=== PATIENT | female | born 1935 | race African-American/Black ===

== ENCOUNTER 2016-05-28 14:51 | Inpatient (IN) | payer MEDICARE, MEDICAID ==
[~2016-05-28] VITALS: Ht 167.6 cm; Wt 112.5 kg
[~2016-05-28 14:51] MED LIST: ALBU2SYR INH; ASPI-292 PO; CLON0.1T PO; COLC0.6T66 PO; DIAZ-56 PO; ESOM40SU PO; FAMO40TA35 PO; FLONAS INH; FOLI-43 PO; GABA300S PO; GUAI10SY3 PO; HYDR1TAB PO; ISOS30TA PO; LORA-250 PO; LORA10TA64 PO; LOSA100T11 PO; MED4 PO; METO50TA5 PO; METO5VIA PO; NITRO BID; PANT40TA4 PO; PROAIR; PROC10TA PO; SIMV20TA2 PO; TIOT18CA3 INH; VERA300C6 PO
[2016-05-28] MEDS ORDERED: SODIUM CHLORIDE 0.9% 1,000 ML IV ONE (15:58)
[2016-05-28 17:07] LABS: BASOPHILS % 0.6 % (0.0-2.0); DIFFERENTIAL COMMENT 0; EOSINOPHILS % 2.4 % (0.0-5.0); HEMATOCRIT. 35.1 % (36.0-48.0); HEMOGLOBIN. 11.1 g/dL (12.0-16.0); LYMPHOCYTES % 39.6 % (20.0-50.0); MEAN CORPUSCULAR HEMOGLOBIN 23.6 pg (28.0-32.0); MEAN CORPUSCULAR HGB CONC 31.5 g/dL (31.0-37.0); MEAN CORPUSCULAR VOLUME 74.9 fL (81.0-99.0); MONOCYTES % 8.2 % (2.0-8.0); NEUTROPHILS % 49.2 % (40.0-76.0); PLATELET 174 x1000/uL (130-400); RED BLOOD CELL COUNT 4.69 mill/uL (4.2-5.4); WHITE BLOOD COUNT 5.5 x1000/uL (4.5-11.0)
[2016-05-28 17:09] LABS: ALANINE AMINOTRANSFERASE 21 IU/L (13-61); ALBUMIN 3.3 g/dL (3.4-5.0); ANION GAP 11; CALCIUM 8.6 mg/dL (8.5-10.1); CARBON DIOXIDE 27 mEq/L (21-32); CHLORIDE 107 mEq/L (98-107); ETHANOL BLOOD < 10 mg/dL; INDEX HEMOLYSI 1 (1-3); INDEX ICTERIC 1 (1-4); INDEX LIPEMIC 1 (1-3); UREA NITROGEN BLOOD 20 mg/dL (7-21); eGFR 53 mL/min (>60)
[2016-05-28 17:12] LABS: TROPONIN I < 0.02 ng/mL (0.00-0.04)
[2016-05-28] MEDS ORDERED: MORPHINE SULFATE 4 MG/ML CPJ (NOT FOR IM USE) IV ONE ×2 (17:30→19:15)
[2016-05-28] MEDS ORDERED: ACETAMINOPHEN 325MG TABLET PO ONE (17:30)
[2016-05-28] MEDS ORDERED: METOCLOPRAMIDE HCL 10MG/2ML VIAL IV ONE (19:15)
[2016-05-28 21:00] VITALS: BP 141/74
[2016-05-28 22:00] VITALS: BP 141/74
[2016-05-29] VITALS: BP 142/75
[2016-05-29] MEDS ORDERED: ONDANSETRON HCL 4MG/2ML VIAL IV PRN (01:45)
[2016-05-29] MEDS: METOPROLOL TARTRATE 50MG TABLET PO SCH ×2 (02:35→13:45)
[2016-05-29] MEDS: HYDROMORPHONE HCL/PF 2MG/ML CPJ IV PRN ×3 (02:36→18:33)
[2016-05-29 04:00] VITALS: BP 145/75
[2016-05-29 07:32] LABS: BASOPHILS % 0.7 % (0.0-2.0); DIFFERENTIAL COMMENT 0; HEMATOCRIT. 35.3 % (36.0-48.0); HEMOGLOBIN. 11.4 g/dL (12.0-16.0); MEAN CORPUSCULAR HEMOGLOBIN 23.7 pg (28.0-32.0); MEAN CORPUSCULAR HGB CONC 32.2 g/dL (31.0-37.0); MEAN CORPUSCULAR VOLUME 73.7 fL (81.0-99.0); MEAN PLATELET VOLUME 8.9 fl (7.4-10.4); MONOCYTES % 7.8 % (2.0-8.0); NEUTROPHILS % 49.5 % (40.0-76.0); PLATELET 177 x1000/uL (130-400); RED BLOOD CELL COUNT 4.79 mill/uL (4.2-5.4); RED CELL DISTRIBUTION WIDTH 18.4 % (11.6-14.6); WHITE BLOOD COUNT 4.5 x1000/uL (4.5-11.0)
[2016-05-29 07:33] LABS: ANION GAP 9; CALCIUM 8.3 mg/dL (8.5-10.1); CARBON DIOXIDE 29 mEq/L (21-32); CHLORIDE 107 mEq/L (98-107); INDEX HEMOLYSI 1 (1-3); INDEX ICTERIC 1 (1-4); INDEX LIPEMIC 1 (1-3); UREA NITROGEN BLOOD 20 mg/dL (7-21); eGFR > 60 mL/min (>60)
[2016-05-29 07:53] VITALS: BP 129/71
[2016-05-29 08:00] LABS: GLUCOSE URINE NEGATIVE (NEGATIVE); KETONES URINE NEGATIVE (NEGATIVE); LEUKOCYTE ESTERASE URINE NEGATIVE (NEGATIVE); NITRITE URINE NEGATIVE (NEGATIVE); OCCULT BLOOD URINE NEGATIVE (NEGATIVE); PH URINE 5.5 (4.5-8.0); PROTEIN URINE NEGATIVE (NEGATIVE); SPECIFIC GRAVITY URINE 1.021 (1.005-1.030); UROBILINOGEN URINE 0.2 E.U./dL (0.2-1.0)
[2016-05-29 08:06] LABS: CLARITY URINE CLEAR (CLEAR); COLOR URINE YELLOW (YELLOW)
[2016-05-29 08:24] LABS: *AMPHETAMINES SCREEN URINE NEGATIVE (NEGATIVE); *BARBITURATES SCREEN URINE NEGATIVE (NEGATIVE); *BENZODIAZEPINES SCREEN URINE PRESUMTIVE POSITIVE (NEGATIVE); *COCAINE SCREEN URINE NEGATIVE (NEGATIVE); CANNABINOID URINE SCREEN NEGATIVE (NEGATIVE); ECSTASY MDMA SCREEN URINE NEGATIVE (NEGATIVE); METHADONE URINE SCREEN NEGATIVE (NEGATIVE); OPIATES URINE SCREEN PRESUMTIVE POSITIVE (NEGATIVE); PHENCYCLIDINE URINE SCREEN NEGATIVE (NEGATIVE)
[2016-05-29] MEDS ORDERED: MEDICATION NOT ON FORMULARY EA (Simvastatin (Zocor) 20 MG) PO SCH (09:00)
[2016-05-29] MEDS: CLONIDINE 0.1MG TABLET PO SCH (09:51)
[2016-05-29] MEDS: LOSARTAN POTASSIUM 100 MG TABLET PO SCH (09:51)
[2016-05-29] MEDS: COLCHICINE 0.6MG TABLET PO SCH (09:51)
[2016-05-29] MEDS: DIAZEPAM 5 MG TABLET PO SCH (09:51)
[2016-05-29] MEDS: FOLIC ACID 1MG TABLET PO SCH (09:51)
[2016-05-29] MEDS: ASPIRIN 81MG TABLET PO SCH (09:51)
[2016-05-29] MEDS: OMEPRAZOLE 20MG CAPSULE EXTENDED RELEASE PO SCH ×2 (09:51→18:33)
[2016-05-29] MEDS: GABAPENTIN 300MG CAPSULE PO SCH ×2 (09:53→18:33)
[2016-05-29 11:54] VITALS: BP 114/76
[2016-05-29] MEDS ORDERED: GEMF600T3 PO (12:23)
[2016-05-29] MEDS: ISOSORBIDE DINITRATE 30MG TABLET PO SCH ×2 (13:45→18:33)
[2016-05-29] MEDS: VERAPAMIL HCL 180MG ER TABLET PO SCH (13:45)
[2016-05-29 15:22] LABS: C REACTIVE PROTEIN QUANT 1.6 mg/L (0.0-3.0)
[2016-05-29 15:43] LABS: FERRITIN 18 ng/mL (10-291)
[2016-05-29 17:36] VITALS: BP 105/66
[2016-05-29] MEDS: FERROUS SULFATE 325MG TABLET PO SCH (18:33)
[2016-05-29 20:00] VITALS: BP 97/47
[2016-05-29 20:23] LABS: INDEX HEMOLYSI 1 (1-3)
[2016-05-29 20:39] LABS: VITAMIN B12 SERUM 383 pg/mL (211-911)
[2016-05-29 20:49] LABS: FOLIC ACID (FOLATE) SERUM > 20.00 ng/mL (>5.38)
[2016-05-30] VITALS: BP 113/69
[2016-05-30] MEDS: HYDROMORPHONE HCL/PF 2MG/ML CPJ IV PRN ×4 (00:06→17:18)
[2016-05-30] MEDS: METOPROLOL TARTRATE 50MG TABLET PO SCH ×2 (01:02→12:38)
[2016-05-30 04:00] VITALS: BP 138/69
[2016-05-30 08:07] VITALS: BP 108/61
[2016-05-30] MEDS: FOLIC ACID 1MG TABLET PO SCH (08:27)
[2016-05-30] MEDS: ASPIRIN 81MG TABLET PO SCH (08:27)
[2016-05-30] MEDS: FERROUS SULFATE 325MG TABLET PO SCH ×3 (08:28→17:15)
[2016-05-30] MEDS: OMEPRAZOLE 20MG CAPSULE EXTENDED RELEASE PO SCH ×2 (08:28→17:17)
[2016-05-30] MEDS: COLCHICINE 0.6MG TABLET PO SCH (08:28)
[2016-05-30] MEDS: ISOSORBIDE DINITRATE 30MG TABLET PO SCH ×2 (08:29→17:17)
[2016-05-30] MEDS: LOSARTAN POTASSIUM 100 MG TABLET PO SCH (08:29)
[2016-05-30] MEDS: GABAPENTIN 300MG CAPSULE PO SCH ×2 (08:35→17:17)
[2016-05-30] MEDS: VERAPAMIL HCL 180MG ER TABLET PO SCH (08:36)
[2016-05-30] MEDS: CLONIDINE 0.1MG TABLET PO SCH (08:37)
[2016-05-30] MEDS: DIAZEPAM 5 MG TABLET PO SCH (09:03)
[2016-05-30 11:54] VITALS: BP 105/69
[2016-05-30 12:51] LABS: T3 FREE 1.96 pg/ml (2.18-3.98); T4 FREE 1.06 ng/dL (0.76-1.46); THYROID STIMULATING HORMONE 2.9 mIU/mL (0.36-3.74)
[2016-05-30 16:32] VITALS: BP 114/65
[2016-05-30 20:00] VITALS: BP 97/42
[2016-05-31] VITALS: BP 97/49
[2016-05-31] MEDS: METOPROLOL TARTRATE 50MG TABLET PO SCH ×2 (01:41→13:31)
[2016-05-31 04:00] VITALS: BP 118/57
[2016-05-31] MEDS ORDERED: HYDROMORPHONE HCL/PF 2MG/ML CPJ IV PRN (07:30)
[2016-05-31 07:52] VITALS: BP 139/68
[2016-05-31] MEDS: OMEPRAZOLE 20MG CAPSULE EXTENDED RELEASE PO SCH ×2 (08:18→17:45)
[2016-05-31] MEDS: GABAPENTIN 300MG CAPSULE PO SCH ×2 (08:19→17:45)
[2016-05-31] MEDS: FOLIC ACID 1MG TABLET PO SCH (08:19)
[2016-05-31] MEDS: ASPIRIN 81MG TABLET PO SCH (08:19)
[2016-05-31] MEDS: FERROUS SULFATE 325MG TABLET PO SCH ×3 (08:19→17:45)
[2016-05-31] MEDS: COLCHICINE 0.6MG TABLET PO SCH (08:19)
[2016-05-31] MEDS: ISOSORBIDE DINITRATE 30MG TABLET PO SCH ×2 (08:20→17:44)
[2016-05-31] MEDS: DIAZEPAM 5 MG TABLET PO SCH (08:20)
[2016-05-31] MEDS: VERAPAMIL HCL 180MG ER TABLET PO SCH (08:21)
[2016-05-31] MEDS: LOSARTAN POTASSIUM 100 MG TABLET PO SCH (08:21)
[2016-05-31] MEDS: CLONIDINE 0.1MG TABLET PO SCH (08:21)
[2016-05-31] MEDS: DEXAMETHASONE 4MG/ML 1ML VIAL IV SCH ×2 (12:12→17:45)
[2016-05-31 13:22] VITALS: BP 135/66
[2016-05-31] MEDS: PHENYTOIN SODIUM 100MG/2ML VIAL IV SCH ×2 (13:31→22:33)
[2016-05-31] MEDS: GEMFIBROZIL 600 MG TAB PO SCH (17:44)
[2016-05-31 20:00] VITALS: BP 152/86
[2016-06-01] VITALS: BP 132/74
[2016-06-01] MEDS: DEXAMETHASONE 4MG/ML 1ML VIAL IV SCH ×4 (00:55→17:48)
[2016-06-01] MEDS: METOPROLOL TARTRATE 50MG TABLET PO SCH ×2 (00:56→12:42)
[2016-06-01 04:00] VITALS: BP 147/96
[2016-06-01] MEDS: PHENYTOIN SODIUM 100MG/2ML VIAL IV SCH (05:44)
[2016-06-01 06:39] LABS: BASOPHILS % 0.3 % (0.0-2.0); DIFFERENTIAL COMMENT 0; HEMATOCRIT. 36.6 % (36.0-48.0); HEMOGLOBIN. 11.8 g/dL (12.0-16.0); LYMPHOCYTES % 15.9 % (20.0-50.0); MEAN CORPUSCULAR HEMOGLOBIN 23.7 pg (28.0-32.0); MEAN CORPUSCULAR HGB CONC 32.2 g/dL (31.0-37.0); MEAN CORPUSCULAR VOLUME 73.6 fL (81.0-99.0); MEAN PLATELET VOLUME 8.9 fl (7.4-10.4); MONOCYTES % 3.1 % (2.0-8.0); NEUTROPHILS % 80.7 % (40.0-76.0); PLATELET 172 x1000/uL (130-400); RED BLOOD CELL COUNT 4.97 mill/uL (4.2-5.4); RED CELL DISTRIBUTION WIDTH 18.4 % (11.6-14.6); WHITE BLOOD COUNT 4.6 x1000/uL (4.5-11.0)
[2016-06-01 07:35] LABS: ANION GAP 13; CALCIUM 9.3 mg/dL (8.5-10.1); CARBON DIOXIDE 25 mEq/L (21-32); CHLORIDE 106 mEq/L (98-107); INDEX HEMOLYSI 1 (1-3); INDEX ICTERIC 1 (1-4); INDEX LIPEMIC 1 (1-3); UREA NITROGEN BLOOD 17 mg/dL (7-21); eGFR > 60 mL/min (>60)
[2016-06-01 08:00] VITALS: BP 166/94
[2016-06-01] MEDS: OMEPRAZOLE 20MG CAPSULE EXTENDED RELEASE PO SCH (08:11)
[2016-06-01] MEDS: FERROUS SULFATE 325MG TABLET PO SCH ×3 (08:11→17:47)
[2016-06-01] MEDS: GEMFIBROZIL 600 MG TAB PO SCH ×2 (08:11→17:48)
[2016-06-01] MEDS: DIAZEPAM 5 MG TABLET PO SCH (09:12)
[2016-06-01] MEDS: GABAPENTIN 300MG CAPSULE PO SCH ×2 (09:12→17:47)
[2016-06-01] MEDS: ASPIRIN 81MG TABLET PO SCH (09:12)
[2016-06-01] MEDS: FOLIC ACID 1MG TABLET PO SCH (09:12)
[2016-06-01] MEDS: CLONIDINE 0.1MG TABLET PO SCH (09:13)
[2016-06-01] MEDS: VERAPAMIL HCL 180MG ER TABLET PO SCH (09:13)
[2016-06-01] MEDS: LOSARTAN POTASSIUM 100 MG TABLET PO SCH (09:13)
[2016-06-01] MEDS: COLCHICINE 0.6MG TABLET PO SCH (09:13)
[2016-06-01] MEDS: ISOSORBIDE DINITRATE 30MG TABLET PO SCH ×2 (09:13→17:48)
[2016-06-01] MEDS: LEVETIRACETAM 500 MG in SODIUM CHLORIDE 0.9% 100 ML IV SCH ×2 (10:39→22:08)
[2016-06-01 12:00] VITALS: BP 116/63
[2016-06-01 16:00] VITALS: BP 122/66
[2016-06-01 20:00] VITALS: BP 134/69
[2016-06-02] VITALS: BP 136/78
[2016-06-02] MEDS: DEXAMETHASONE 4MG/ML 1ML VIAL IV SCH ×5 (01:43→23:46)
[2016-06-02] MEDS: METOPROLOL TARTRATE 50MG TABLET PO SCH ×2 (01:44→13:30)
[2016-06-02 04:00] VITALS: BP 149/88
[2016-06-02 08:01] VITALS: BP 149/68
[2016-06-02] MEDS: LOSARTAN POTASSIUM 100 MG TABLET PO SCH (08:35)
[2016-06-02] MEDS: LEVETIRACETAM 500 MG in SODIUM CHLORIDE 0.9% 100 ML IV SCH ×2 (08:35→21:26)
[2016-06-02] MEDS: GABAPENTIN 300MG CAPSULE PO SCH ×2 (08:35→18:27)
[2016-06-02] MEDS: FERROUS SULFATE 325MG TABLET PO SCH ×3 (08:35→18:27)
[2016-06-02] MEDS: FOLIC ACID 1MG TABLET PO SCH (08:36)
[2016-06-02] MEDS: CLONIDINE 0.1MG TABLET PO SCH (08:36)
[2016-06-02] MEDS: COLCHICINE 0.6MG TABLET PO SCH (08:36)
[2016-06-02] MEDS: ISOSORBIDE DINITRATE 30MG TABLET PO SCH ×2 (08:36→18:30)
[2016-06-02] MEDS: ASPIRIN 81MG TABLET PO SCH (08:36)
[2016-06-02] MEDS: VERAPAMIL HCL 180MG ER TABLET PO SCH (08:37)
[2016-06-02] MEDS: DIAZEPAM 5 MG TABLET PO SCH (08:38)
[2016-06-02] MEDS: NEXIUM 40 MG PO SCH (08:38)
[2016-06-02] MEDS: GEMFIBROZIL 600 MG TAB PO SCH ×2 (08:38→18:28)
[2016-06-02 12:00] VITALS: BP 142/78
[2016-06-02 16:00] VITALS: BP 134/76
[2016-06-02 20:00] VITALS: BP 137/73
[2016-06-03] VITALS (56 sets, daily range): BP systolic 110–194; BP diastolic 40–86
[2016-06-03] MEDS: METOPROLOL TARTRATE 50MG TABLET PO SCH ×2 (01:30→12:57)
[2016-06-03] MEDS: DEXAMETHASONE 4MG/ML 1ML VIAL IV SCH ×4 (05:39→23:29)
[2016-06-03] MEDS ORDERED: THROMBIN (BOVINE) 5000 UNITS/VIAL TOP ONE (06:55)
[2016-06-03] MEDS ORDERED: GELATIN SPONGE,ABSORBABLE SZ 100 ONE (06:56)
[2016-06-03] MEDS ORDERED: BACITRACIN/POLYMYXIN B SULFATE OINT 28.35GM TOP ONE (06:57)
[2016-06-03] MEDS ORDERED: BUPIVACAINE HCL/EPINEPHRINE 0.5%/0.0005 30ML ONE (06:57)
[2016-06-03] MEDS ORDERED: BACITRACIN 50,000 UNITS/VIAL ONE (06:57)
[2016-06-03] MEDS ORDERED: PROPOFOL 200MG/20ML VIAL IV ONE (07:05)
[2016-06-03] MEDS ORDERED: ROCURONIUM BROMIDE 10MG/ML VIAL 5ML IV ONE (07:06)
[2016-06-03] MEDS ORDERED: LIDOCAINE HCL 1% 20ML VIAL (Pyxis) INJ ONE (07:06)
[2016-06-03] MEDS ORDERED: CEFAZOLIN SODIUM 1000MG/VIAL ONE (07:06)
[2016-06-03] MEDS ORDERED: SODIUM CHLORIDE 0.9% 10ML VIAL ONE (07:06)
[2016-06-03] MEDS ORDERED: ESMOLOL HCL 10MG/ML 10ML VIAL IV ONE (07:06)
[2016-06-03] MEDS ORDERED: LIDOCAINE HCL/EPINEPHRINE 0.5%-EPI 1:200,000 50 ML VIAL INFIL ONE (07:15)
[2016-06-03] MEDS ORDERED: MANNITOL 20% 500 ML IV ONE (07:31)
[2016-06-03] MEDS ORDERED: NITROGLYCERIN 50MG PREMIX 250 ML IV ONE (07:32)
[2016-06-03] MEDS ORDERED: MIDAZOLAM HCL 2 MG/2 ML VIAL ONE (07:39)
[2016-06-03] MEDS ORDERED: FENTANYL CITRATE/PF 50MCG/ML 5ML VIAL ONE (07:39)
[2016-06-03] MEDS: GEMFIBROZIL 600 MG TAB PO SCH ×2 (07:40→16:30)
[2016-06-03] MEDS ORDERED: PHENYTOIN SODIUM 250MG/5ML VIAL IV ONE (08:03)
[2016-06-03] MEDS: FERROUS SULFATE 325MG TABLET PO SCH ×3 (08:10→17:00)
[2016-06-03] MEDS: CLONIDINE 0.1MG TABLET PO SCH (09:00)
[2016-06-03] MEDS: VERAPAMIL HCL 180MG ER TABLET PO SCH (09:00)
[2016-06-03] MEDS: DIAZEPAM 5 MG TABLET PO SCH (09:00)
[2016-06-03] MEDS: NEXIUM 40 MG PO SCH (09:00)
[2016-06-03] MEDS: FOLIC ACID 1MG TABLET PO SCH (09:00)
[2016-06-03] MEDS: ASPIRIN 81MG TABLET PO SCH (09:00)
[2016-06-03] MEDS: COLCHICINE 0.6MG TABLET PO SCH (09:00)
[2016-06-03] MEDS: ISOSORBIDE DINITRATE 30MG TABLET PO SCH ×2 (09:00→17:00)
[2016-06-03] MEDS: LOSARTAN POTASSIUM 100 MG TABLET PO SCH (09:00)
[2016-06-03] MEDS: GABAPENTIN 300MG CAPSULE PO SCH ×2 (09:00→17:00)
[2016-06-03] MEDS: LEVETIRACETAM 500 MG in SODIUM CHLORIDE 0.9% 100 ML IV SCH ×2 (09:30→20:35)
[2016-06-03] MEDS ORDERED: EPHEDRINE SULFATE 50MG/ML VIAL ONE (10:22)
[2016-06-03] MEDS ORDERED: NEOSTIGMINE METHYLSULFATE 1MG/ML 10 ML VIAL ONE (10:22)
[2016-06-03] MEDS ORDERED: GLYCOPYRROLATE 0.2 MG/ML 2ML VIAL ONE (10:22)
[2016-06-03] MEDS ORDERED: LABETALOL HCL 5MG/ML VIAL 20ML IV ONE (10:22)
[2016-06-03] MEDS ORDERED: ONDANSETRON HCL 4MG/2ML VIAL ONE (10:22)
[2016-06-03] MEDS ORDERED: HYDROMORPHONE HCL/PF 2MG/ML (OR) ONE (10:26)
[2016-06-03] MEDS: NICARDIPINE 100 MG in DEXT 5% WATER 60 ML IV PRN ×2 (11:03→22:36)
[2016-06-03] MEDS: MORPHINE SULFATE 2 MG/ML CPJ (NOT FOR IM USE) IV PRN ×3 (11:53→20:50)
[2016-06-03] MEDS: DEXT 5%/LACTATED RINGERS 1,000 ML IV SCH (12:07)
[2016-06-03 12:49] LABS: BASOPHILS % 0.1 % (0.0-2.0); DIFFERENTIAL COMMENT 0; HEMATOCRIT. 34.6 % (36.0-48.0); HEMOGLOBIN. 10.9 g/dL (12.0-16.0); LYMPHOCYTES % 10.8 % (20.0-50.0); MEAN CORPUSCULAR HEMOGLOBIN 23.4 pg (28.0-32.0); MEAN CORPUSCULAR HGB CONC 31.4 g/dL (31.0-37.0); MEAN CORPUSCULAR VOLUME 74.6 fL (81.0-99.0); MONOCYTES % 2.6 % (2.0-8.0); NEUTROPHILS % 86.5 % (40.0-76.0); PLATELET 168 x1000/uL (130-400); RED BLOOD CELL COUNT 4.64 mill/uL (4.2-5.4); WHITE BLOOD COUNT 7.4 x1000/uL (4.5-11.0)
[2016-06-03 13:01] LABS: ANION GAP 15; CALCIUM 8.3 mg/dL (8.5-10.1); CARBON DIOXIDE 23 mEq/L (21-32); CHLORIDE 107 mEq/L (98-107); INDEX HEMOLYSI 1 (1-3); INDEX ICTERIC 1 (1-4); INDEX LIPEMIC 1 (1-3); UREA NITROGEN BLOOD 20 mg/dL (7-21); eGFR > 60 mL/min (>60)
[2016-06-03] MEDS ORDERED: CEFAZOLIN SODIUM 1000MG/VIAL IV SCH (14:00)
[2016-06-03] MEDS: CEFAZOLIN 1000MG PREMIX 50 ML IV SCH ×2 (14:30→21:32)
[2016-06-04] VITALS (77 sets, daily range): BP systolic 65–175; BP diastolic 43–112
[2016-06-04] MEDS: MORPHINE SULFATE 2 MG/ML CPJ (NOT FOR IM USE) IV PRN ×2 (01:07→12:03)
[2016-06-04] MEDS: METOPROLOL TARTRATE 50MG TABLET PO SCH ×2 (01:30→13:30)
[2016-06-04 04:45] LABS: BASOPHILS % 0.2 % (0.0-2.0); DIFFERENTIAL COMMENT 0; EOSINOPHILS % 0.1 % (0.0-5.0); HEMATOCRIT. 34.3 % (36.0-48.0); HEMOGLOBIN. 10.8 g/dL (12.0-16.0); LYMPHOCYTES % 10.5 % (20.0-50.0); MEAN CORPUSCULAR HEMOGLOBIN 23.6 pg (28.0-32.0); MEAN CORPUSCULAR HGB CONC 31.6 g/dL (31.0-37.0); MEAN CORPUSCULAR VOLUME 74.8 fL (81.0-99.0); MEAN PLATELET VOLUME 9.3 fl (7.4-10.4); MONOCYTES % 5.9 % (2.0-8.0); NEUTROPHILS % 83.3 % (40.0-76.0); PLATELET 175 x1000/uL (130-400); RED BLOOD CELL COUNT 4.58 mill/uL (4.2-5.4); RED CELL DISTRIBUTION WIDTH 18.2 % (11.6-14.6); WHITE BLOOD COUNT 8.5 x1000/uL (4.5-11.0)
[2016-06-04] MEDS: CEFAZOLIN 1000MG PREMIX 50 ML IV SCH ×2 (05:29→14:00)
[2016-06-04] MEDS: DEXAMETHASONE 4MG/ML 1ML VIAL IV SCH ×3 (05:29→17:44)
[2016-06-04 05:30] LABS: ANION GAP 13; CALCIUM 8.2 mg/dL (8.5-10.1); CARBON DIOXIDE 27 mEq/L (21-32); CHLORIDE 106 mEq/L (98-107); INDEX HEMOLYSI 1 (1-3); INDEX ICTERIC 1 (1-4); INDEX LIPEMIC 1 (1-3); UREA NITROGEN BLOOD 14 mg/dL (7-21); eGFR > 60 mL/min (>60)
[2016-06-04] MEDS: GEMFIBROZIL 600 MG TAB PO SCH ×2 (05:35→16:30)
[2016-06-04] MEDS: DEXT 5%/LACTATED RINGERS 1,000 ML IV SCH ×2 (05:35→17:35)
[2016-06-04] MEDS: FERROUS SULFATE 325MG TABLET PO SCH ×3 (06:23→16:50)
[2016-06-04] MEDS: VERAPAMIL HCL 180MG ER TABLET PO SCH (09:00)
[2016-06-04] MEDS: ASPIRIN 81MG TABLET PO SCH (09:00)
[2016-06-04] MEDS: COLCHICINE 0.6MG TABLET PO SCH (09:00)
[2016-06-04] MEDS: FOLIC ACID 1MG TABLET PO SCH (09:00)
[2016-06-04] MEDS: LOSARTAN POTASSIUM 100 MG TABLET PO SCH (09:00)
[2016-06-04] MEDS: CLONIDINE 0.1MG TABLET PO SCH (09:00)
[2016-06-04] MEDS: NEXIUM 40 MG PO SCH (09:00)
[2016-06-04] MEDS: ISOSORBIDE DINITRATE 30MG TABLET PO SCH ×2 (09:00→16:50)
[2016-06-04] MEDS: GABAPENTIN 300MG CAPSULE PO SCH ×2 (10:16→16:50)
[2016-06-04] MEDS: LEVETIRACETAM 500 MG in SODIUM CHLORIDE 0.9% 100 ML IV SCH ×2 (10:18→22:13)
[2016-06-04] MEDS: NICARDIPINE 100 MG in DEXT 5% WATER 60 ML IV PRN (12:05)
[2016-06-05] VITALS (60 sets, daily range): BP systolic 94–159; BP diastolic 35–93
[2016-06-05] MEDS: DEXAMETHASONE 4MG/ML 1ML VIAL IV SCH ×4 (01:18→17:09)
[2016-06-05] MEDS: METOPROLOL TARTRATE 50MG TABLET PO SCH ×2 (01:18→13:52)
[2016-06-05] MEDS: NICARDIPINE 100 MG in DEXT 5% WATER 60 ML IV PRN (03:07)
[2016-06-05] MEDS: GEMFIBROZIL 600 MG TAB PO SCH ×2 (06:34→17:07)
[2016-06-05] MEDS: FERROUS SULFATE 325MG TABLET PO SCH ×3 (06:34→17:07)
[2016-06-05] MEDS: GABAPENTIN 300MG CAPSULE PO SCH ×2 (09:00→17:08)
[2016-06-05] MEDS: CLONIDINE 0.1MG TABLET PO SCH (09:00)
[2016-06-05] MEDS: ISOSORBIDE DINITRATE 30MG TABLET PO SCH ×2 (09:00→17:08)
[2016-06-05] MEDS: VERAPAMIL HCL 180MG ER TABLET PO SCH (09:00)
[2016-06-05] MEDS: NEXIUM 40 MG PO SCH ×2 (09:00→14:00)
[2016-06-05] MEDS: COLCHICINE 0.6MG TABLET PO SCH (09:00)
[2016-06-05] MEDS: ASPIRIN 81MG TABLET PO SCH (09:00)
[2016-06-05] MEDS: LOSARTAN POTASSIUM 100 MG TABLET PO SCH (09:00)
[2016-06-05] MEDS: FOLIC ACID 1MG TABLET PO SCH (09:00)
[2016-06-05] MEDS: LEVETIRACETAM 500 MG in SODIUM CHLORIDE 0.9% 100 ML IV SCH ×2 (10:31→21:32)
[2016-06-05] MEDS ORDERED: GADOBENATE DIMEGLUMINE 529 MG/ML 10ML IV ONE (11:01)
[2016-06-05] MEDS: DEXT 5%/LACTATED RINGERS 1,000 ML IV SCH (11:37)
[2016-06-05] MEDS ORDERED: NICARDIPINE 100 MG in SODIUM CHLORIDE 0.9% 60 ML IV PRN (12:15)
[2016-06-05] MEDS: MORPHINE SULFATE 2 MG/ML CPJ (NOT FOR IM USE) IV PRN ×2 (15:46→21:33)
[2016-06-06] VITALS (27 sets, daily range): BP systolic 103–146; BP diastolic 52–75
[2016-06-06] MEDS: DEXAMETHASONE 4MG/ML 1ML VIAL IV SCH ×4 (00:37→21:45)
[2016-06-06] MEDS: METOPROLOL TARTRATE 50MG TABLET PO SCH ×2 (01:30→13:30)
[2016-06-06 05:16] LABS: BASOPHILS % 0.2 % (0.0-2.0); DIFFERENTIAL COMMENT 0; HEMATOCRIT. 33.5 % (36.0-48.0); HEMOGLOBIN. 10.8 g/dL (12.0-16.0); LYMPHOCYTES % 14.3 % (20.0-50.0); MEAN CORPUSCULAR HEMOGLOBIN 23.7 pg (28.0-32.0); MEAN CORPUSCULAR HGB CONC 32.2 g/dL (31.0-37.0); MEAN CORPUSCULAR VOLUME 73.5 fL (81.0-99.0); MEAN PLATELET VOLUME 8.9 fl (7.4-10.4); MONOCYTES % 6.6 % (2.0-8.0); NEUTROPHILS % 78.9 % (40.0-76.0); PLATELET 182 x1000/uL (130-400); RED BLOOD CELL COUNT 4.55 mill/uL (4.2-5.4); RED CELL DISTRIBUTION WIDTH 18.4 % (11.6-14.6); WHITE BLOOD COUNT 7.9 x1000/uL (4.5-11.0)
[2016-06-06 05:55] LABS: ANION GAP 12; CALCIUM 7.6 mg/dL (8.5-10.1); CARBON DIOXIDE 28 mEq/L (21-32); CHLORIDE 100 mEq/L (98-107); INDEX HEMOLYSI 1 (1-3); INDEX ICTERIC 1 (1-4); INDEX LIPEMIC 1 (1-3); UREA NITROGEN BLOOD 21 mg/dL (7-21); eGFR > 60 mL/min (>60)
[2016-06-06] MEDS: FERROUS SULFATE 325MG TABLET PO SCH ×3 (06:19→17:00)
[2016-06-06] MEDS: GEMFIBROZIL 600 MG TAB PO SCH ×2 (06:20→17:00)
[2016-06-06] MEDS: DEXT 5%/LACTATED RINGERS 1,000 ML IV SCH (07:16)
[2016-06-06] MEDS: ASPIRIN 81MG TABLET PO SCH (09:00)
[2016-06-06] MEDS: COLCHICINE 0.6MG TABLET PO SCH (09:44)
[2016-06-06] MEDS: LOSARTAN POTASSIUM 100 MG TABLET PO SCH (09:45)
[2016-06-06] MEDS: GABAPENTIN 300MG CAPSULE PO SCH ×2 (09:45→18:11)
[2016-06-06] MEDS: CLONIDINE 0.1MG TABLET PO SCH (09:45)
[2016-06-06] MEDS: ISOSORBIDE DINITRATE 30MG TABLET PO SCH ×2 (09:45→18:11)
[2016-06-06] MEDS: FOLIC ACID 1MG TABLET PO SCH (09:45)
[2016-06-06] MEDS: VERAPAMIL HCL 180MG ER TABLET PO SCH (10:39)
[2016-06-06] MEDS: LEVETIRACETAM 500 MG in SODIUM CHLORIDE 0.9% 100 ML IV SCH ×2 (10:39→21:45)
[2016-06-06] MEDS: SENNOSIDES/DOCUSATE SOD 8.6/50MG TABLET PO PRN (11:58)
[2016-06-06] MEDS ORDERED: BISACODYL 10MG SUPP PR NR (15:00)
[2016-06-06] MEDS ORDERED: NON FORMULARY PATIENT HOME MED EA PO SCH (17:00)
[2016-06-06] MEDS: NEXIUM 40 MG PO SCH (17:00)
[2016-06-07] VITALS: BP 113/70
[2016-06-07] MEDS: METOPROLOL TARTRATE 50MG TABLET PO SCH ×2 (00:52→12:22)
[2016-06-07 04:00] VITALS: BP 105/69
[2016-06-07] MEDS: MORPHINE SULFATE 2 MG/ML CPJ (NOT FOR IM USE) IV PRN ×2 (04:28→12:23)
[2016-06-07] MEDS: GEMFIBROZIL 600 MG TAB PO SCH ×2 (06:21→17:25)
[2016-06-07 08:00] VITALS: BP 111/59
[2016-06-07] MEDS: CLONIDINE 0.1MG TABLET PO SCH (09:00)
[2016-06-07] MEDS: LOSARTAN POTASSIUM 100 MG TABLET PO SCH (09:00)
[2016-06-07] MEDS: VERAPAMIL HCL 180MG ER TABLET PO SCH (09:00)
[2016-06-07] MEDS ORDERED: NEXIUM 40 MG PO SCH (09:00)
[2016-06-07] MEDS: ISOSORBIDE DINITRATE 30MG TABLET PO SCH ×2 (09:40→16:58)
[2016-06-07] MEDS: GABAPENTIN 300MG CAPSULE PO SCH ×2 (09:40→17:24)
[2016-06-07] MEDS: DEXAMETHASONE 4MG/ML 1ML VIAL IV SCH ×2 (09:40→21:13)
[2016-06-07] MEDS: ASPIRIN 81MG TABLET PO SCH (09:40)
[2016-06-07] MEDS: LEVETIRACETAM 500 MG in SODIUM CHLORIDE 0.9% 100 ML IV SCH ×2 (09:40→21:13)
[2016-06-07] MEDS: FOLIC ACID 1MG TABLET PO SCH (09:40)
[2016-06-07] MEDS: COLCHICINE 0.6MG TABLET PO SCH (09:40)
[2016-06-07] MEDS: FERROUS SULFATE 325MG TABLET PO SCH ×5 (09:41→17:28)
[2016-06-07] MEDS: NEXIUM 40 MG PO SCH (09:43)
[2016-06-07 12:00] VITALS: BP 116/64
[2016-06-07 16:00] VITALS: BP 113/57
[2016-06-07] MEDS ORDERED: DIPHENHYDRAMINE 50MG/ML VIAL IV PRN (17:15)
[2016-06-07 20:00] VITALS: BP 128/85
[2016-06-07] MEDS ORDERED: METOPROLOL TARTRATE 25MG TABLET PO SCH (21:00)
[2016-06-07] MEDS: HYDROCODONE/ACETAMINOPHEN 5/325MG TABLET PO PRN (21:12)
[2016-06-08] VITALS: BP 129/66
[2016-06-08] MEDS: HYDROCODONE/ACETAMINOPHEN 5/325MG TABLET PO PRN (01:29)
[2016-06-08 04:00] VITALS: BP 118/65
[2016-06-08 06:08] LABS: HEMATOCRIT. 31.7 % (36.0-48.0); HEMOGLOBIN. 10.3 g/dL (12.0-16.0); MEAN CORPUSCULAR HEMOGLOBIN 23.6 pg (28.0-32.0); MEAN CORPUSCULAR HGB CONC 32.5 g/dL (31.0-37.0); MEAN CORPUSCULAR VOLUME 72.6 fL (81.0-99.0); MEAN PLATELET VOLUME 8.5 fl (7.4-10.4); PLATELET 178 x1000/uL (130-400); RED BLOOD CELL COUNT 4.36 mill/uL (4.2-5.4); RED CELL DISTRIBUTION WIDTH 18.2 % (11.6-14.6); WHITE BLOOD COUNT 6.7 x1000/uL (4.5-11.0)
[2016-06-08] MEDS: GEMFIBROZIL 600 MG TAB PO SCH ×2 (06:32→17:27)
[2016-06-08 06:53] LABS: DIFFERENTIAL COMMENT 1
[2016-06-08 07:25] LABS: ANION GAP 12; CALCIUM 7.8 mg/dL (8.5-10.1); CARBON DIOXIDE 26 mEq/L (21-32); CHLORIDE 102 mEq/L (98-107); INDEX HEMOLYSI 1 (1-3); INDEX ICTERIC 1 (1-4); INDEX LIPEMIC 1 (1-3); UREA NITROGEN BLOOD 19 mg/dL (7-21); eGFR > 60 mL/min (>60)
[2016-06-08] MEDS: FERROUS SULFATE 325MG TABLET PO SCH ×3 (08:50→17:27)
[2016-06-08] MEDS: COLCHICINE 0.6MG TABLET PO SCH (08:50)
[2016-06-08] MEDS: FOLIC ACID 1MG TABLET PO SCH (08:50)
[2016-06-08] MEDS: ASPIRIN 81MG TABLET PO SCH (08:50)
[2016-06-08] MEDS: LOSARTAN POTASSIUM 100 MG TABLET PO SCH (08:50)
[2016-06-08] MEDS: NEXIUM 40 MG PO SCH (08:51)
[2016-06-08] MEDS: GABAPENTIN 300MG CAPSULE PO SCH ×2 (08:53→17:27)
[2016-06-08] MEDS: ISOSORBIDE DINITRATE 30MG TABLET PO SCH ×2 (09:00→16:38)
[2016-06-08] MEDS: DEXAMETHASONE 4MG/ML 1ML VIAL IV SCH ×2 (09:04→22:25)
[2016-06-08] MEDS: LEVETIRACETAM 500 MG in SODIUM CHLORIDE 0.9% 100 ML IV SCH ×2 (10:28→22:26)
[2016-06-08] MEDS ORDERED: TAPE75TA2 PO (11:18)
[2016-06-08 12:00] VITALS: BP 139/78
[2016-06-08 16:00] VITALS: BP 141/78
[2016-06-08 20:00] VITALS: BP 158/82
[2016-06-08 20:15] LABS: HYPOCHROMASIA 1+; PLATELET ESTIMATE NORMAL
[2016-06-09] VITALS: BP 179/83
[2016-06-09] MEDS: HYDROCODONE/ACETAMINOPHEN 5/325MG TABLET PO PRN (00:23)
[2016-06-09 04:00] VITALS: BP 140/95
[2016-06-09 06:06] LABS: HEMATOCRIT. 35.4 % (36.0-48.0); HEMOGLOBIN. 11.4 g/dL (12.0-16.0); MEAN CORPUSCULAR HEMOGLOBIN 23.5 pg (28.0-32.0); MEAN CORPUSCULAR HGB CONC 32.1 g/dL (31.0-37.0); MEAN CORPUSCULAR VOLUME 73.2 fL (81.0-99.0); MEAN PLATELET VOLUME 8.6 fl (7.4-10.4); PLATELET 207 x1000/uL (130-400); RED BLOOD CELL COUNT 4.84 mill/uL (4.2-5.4); RED CELL DISTRIBUTION WIDTH 18.4 % (11.6-14.6); WHITE BLOOD COUNT 7.5 x1000/uL (4.5-11.0)
[2016-06-09 06:10] LABS: DIFFERENTIAL COMMENT 1
[2016-06-09 06:36] LABS: ANION GAP 13; CALCIUM 8.4 mg/dL (8.5-10.1); CARBON DIOXIDE 24 mEq/L (21-32); CHLORIDE 104 mEq/L (98-107); INDEX HEMOLYSI 1 (1-3); INDEX ICTERIC 1 (1-4); INDEX LIPEMIC 1 (1-3); MAGNESIUM 2.5 mg/dL (1.8-2.4); UREA NITROGEN BLOOD 18 mg/dL (7-21); eGFR > 60 mL/min (>60)
[2016-06-09] MEDS: GEMFIBROZIL 600 MG TAB PO SCH ×2 (07:47→18:02)
[2016-06-09 08:00] VITALS: BP 168/92
[2016-06-09] MEDS: FERROUS SULFATE 325MG TABLET PO SCH ×3 (09:26→17:40)
[2016-06-09] MEDS: COLCHICINE 0.6MG TABLET PO SCH (09:26)
[2016-06-09] MEDS: ISOSORBIDE DINITRATE 30MG TABLET PO SCH ×2 (09:26→17:00)
[2016-06-09] MEDS: DEXAMETHASONE 4MG/ML 1ML VIAL IV SCH ×2 (09:26→21:00)
[2016-06-09] MEDS: FOLIC ACID 1MG TABLET PO SCH (09:27)
[2016-06-09] MEDS: GABAPENTIN 300MG CAPSULE PO SCH ×2 (09:27→18:00)
[2016-06-09] MEDS: LEVETIRACETAM 500 MG in SODIUM CHLORIDE 0.9% 100 ML IV SCH ×2 (09:27→21:09)
[2016-06-09] MEDS: ASPIRIN 81MG TABLET PO SCH (09:27)
[2016-06-09] MEDS: LOSARTAN POTASSIUM 100 MG TABLET PO SCH (09:27)
[2016-06-09] MEDS ORDERED: ATROPINE SULFATE 1MG/ML VIAL IV PRN (10:45)
[2016-06-09 12:00] VITALS: BP 143/79
[2016-06-09 14:33] LABS: ANISOCYTOSIS 1+; OVALOCYTES 1+; PLATELET ESTIMATE NORMAL; TEAR DROP CELLS 1+
[2016-06-09 16:00] VITALS: BP 109/63
[2016-06-09] MEDS: NEXIUM 40MG CAPSULE PO SCH (18:09)
[2016-06-09 20:00] VITALS: BP 148/81
[2016-06-10] VITALS: BP 149/84
[2016-06-10 04:00] VITALS: BP 149/67
[2016-06-10] MEDS: GEMFIBROZIL 600 MG TAB PO SCH ×2 (06:18→17:03)
[2016-06-10] MEDS: FERROUS SULFATE 325MG TABLET PO SCH ×4 (07:40→17:03)
[2016-06-10 08:00] VITALS: BP 152/79
[2016-06-10] MEDS: NEXIUM 40MG CAPSULE PO SCH ×3 (09:00→17:03)
[2016-06-10] MEDS: ISOSORBIDE DINITRATE 30MG TABLET PO SCH (09:04)
[2016-06-10] MEDS: LEVETIRACETAM 500MG TABLET PO SCH ×2 (09:04→21:16)
[2016-06-10] MEDS: FOLIC ACID 1MG TABLET PO SCH (09:04)
[2016-06-10] MEDS: DEXAMETHASONE 4MG/ML 1ML VIAL IV SCH ×2 (09:04→21:16)
[2016-06-10] MEDS: ASPIRIN 81MG TABLET PO SCH (09:04)
[2016-06-10] MEDS: GABAPENTIN 300MG CAPSULE PO SCH ×2 (09:04→17:03)
[2016-06-10] MEDS: LOSARTAN POTASSIUM 100 MG TABLET PO SCH (09:08)
[2016-06-10] MEDS: COLCHICINE 0.6MG TABLET PO SCH (09:08)
[2016-06-10] MEDS: AMLODIPINE 5MG TABLET PO SCH (11:00)
[2016-06-10 11:41] VITALS: BP 112/70
[2016-06-10 15:51] VITALS: BP 123/67
[2016-06-10 20:00] VITALS: BP 108/64
[2016-06-11] VITALS: BP 115/60
[2016-06-11 04:00] VITALS: BP 129/88
[2016-06-11] MEDS: NEXIUM 40MG CAPSULE PO SCH ×2 (06:13→17:11)
[2016-06-11] MEDS: GEMFIBROZIL 600 MG TAB PO SCH ×2 (06:13→17:11)
[2016-06-11] MEDS: FERROUS SULFATE 325MG TABLET PO SCH ×3 (07:30→17:12)
[2016-06-11 08:00] VITALS: BP 145/84
[2016-06-11] MEDS: GABAPENTIN 300MG CAPSULE PO SCH ×2 (09:01→17:10)
[2016-06-11] MEDS: FOLIC ACID 1MG TABLET PO SCH (09:01)
[2016-06-11] MEDS: ISOSORBIDE MONONITRATE 30MG TABLET SR 24HR PO SCH (09:01)
[2016-06-11] MEDS: LEVETIRACETAM 500MG TABLET PO SCH ×2 (09:01→21:31)
[2016-06-11] MEDS: AMLODIPINE 5MG TABLET PO SCH (09:01)
[2016-06-11] MEDS: ASPIRIN 81MG TABLET PO SCH (09:02)
[2016-06-11] MEDS: LOSARTAN POTASSIUM 100 MG TABLET PO SCH (09:02)
[2016-06-11] MEDS: COLCHICINE 0.6MG TABLET PO SCH (09:02)
[2016-06-11] MEDS: DEXAMETHASONE 4MG/ML 1ML VIAL IV SCH ×2 (09:15→21:32)
[2016-06-11] MEDS: BISACODYL 10MG SUPP PR SCH (10:27)
[2016-06-11] MEDS: LACTULOSE 20G/30ML UDC PO SCH ×3 (10:27→17:10)
[2016-06-11] MEDS: HYDROCODONE/ACETAMINOPHEN 5/325MG TABLET PO PRN ×2 (10:28→23:16)
[2016-06-11 11:59] VITALS: BP 120/79
[2016-06-11 15:45] VITALS: BP 106/58
[2016-06-11] MEDS: DOCUSATE SODIUM 100MG CAPSULE PO SCH (17:10)
[2016-06-11 20:00] VITALS: BP 114/62
[2016-06-11] MEDS: POLYETHYLENE GLYCOL 3350 (17GM) 1 DOSE PACK PO SCH (21:00)
[2016-06-12] VITALS: BP 106/69
[2016-06-12 04:00] VITALS: BP 123/70
[2016-06-12] MEDS: GEMFIBROZIL 600 MG TAB PO SCH ×2 (06:25→17:46)
[2016-06-12] MEDS ORDERED: NA PHOS,M-B/NA PHOS,DI-BA ENEMA 118ML PR NR (07:12)
[2016-06-12] MEDS: FERROUS SULFATE 325MG TABLET PO SCH ×4 (07:40→17:40)
[2016-06-12 08:00] VITALS: BP 152/80
[2016-06-12] MEDS: BISACODYL 10MG SUPP PR SCH (08:59)
[2016-06-12] MEDS: LEVETIRACETAM 500MG TABLET PO SCH ×2 (09:00→20:31)
[2016-06-12] MEDS: COLCHICINE 0.6MG TABLET PO SCH (09:00)
[2016-06-12] MEDS: AMLODIPINE 5MG TABLET PO SCH (09:00)
[2016-06-12] MEDS: LOSARTAN POTASSIUM 100 MG TABLET PO SCH (09:00)
[2016-06-12] MEDS: DOCUSATE SODIUM 100MG CAPSULE PO SCH ×2 (09:00→17:45)
[2016-06-12] MEDS: ASPIRIN 81MG TABLET PO SCH (09:01)
[2016-06-12] MEDS: DEXAMETHASONE 4MG/ML 1ML VIAL IV SCH ×2 (09:01→20:31)
[2016-06-12] MEDS: GABAPENTIN 300MG CAPSULE PO SCH ×2 (09:01→17:46)
[2016-06-12] MEDS: FOLIC ACID 1MG TABLET PO SCH (09:01)
[2016-06-12] MEDS: ISOSORBIDE MONONITRATE 30MG TABLET SR 24HR PO SCH (09:01)
[2016-06-12] MEDS: NEXIUM 40MG CAPSULE PO SCH ×2 (09:02→17:46)
[2016-06-12 12:00] VITALS: BP 134/82
[2016-06-12 15:33] LABS: HEMATOCRIT 35.2 % (36.0-48.0); HEMOGLOBIN 11.2 g/dL (12.0-16.0); MEAN CORPUSCULAR HEMOGLOBIN 24.1 pg (28.0-32.0); MEAN CORPUSCULAR HGB CONC 31.8 g/dL (31.0-37.0); MEAN CORPUSCULAR VOLUME 75.5 fL (81.0-99.0); PLATELET 219 x1000/uL (130-400); RED BLOOD CELL COUNT 4.66 mill/uL (4.2-5.4); RED CELL DISTRIBUTION WIDTH 18.2 % (11.6-14.6); WHITE BLOOD COUNT 13.1 x1000/uL (4.5-11.0)
[2016-06-12 16:00] VITALS: BP 127/68
[2016-06-12 20:00] VITALS: BP 123/68
[2016-06-12] MEDS: POLYETHYLENE GLYCOL 3350 (17GM) 1 DOSE PACK PO SCH (20:31)
[2016-06-13] VITALS: BP 111/67
[2016-06-13 04:00] VITALS: BP 141/88
[2016-06-13] MEDS: GEMFIBROZIL 600 MG TAB PO SCH ×2 (06:29→16:42)
[2016-06-13 06:51] LABS: BASOPHILS % 0.2 % (0.0-2.0); DIFFERENTIAL COMMENT 0; EOSINOPHILS % 0.1 % (0.0-5.0); HEMATOCRIT. 32.9 % (36.0-48.0); HEMOGLOBIN. 10.4 g/dL (12.0-16.0); LYMPHOCYTES % 13.9 % (20.0-50.0); MEAN CORPUSCULAR HEMOGLOBIN 23.7 pg (28.0-32.0); MEAN CORPUSCULAR HGB CONC 31.7 g/dL (31.0-37.0); MEAN CORPUSCULAR VOLUME 74.7 fL (81.0-99.0); MEAN PLATELET VOLUME 8.1 fl (7.4-10.4); MONOCYTES % 6.3 % (2.0-8.0); NEUTROPHILS % 79.5 % (40.0-76.0); PLATELET 207 x1000/uL (130-400); RED BLOOD CELL COUNT 4.41 mill/uL (4.2-5.4); RED CELL DISTRIBUTION WIDTH 18.4 % (11.6-14.6); WHITE BLOOD COUNT 12.1 x1000/uL (4.5-11.0)
[2016-06-13 07:49] LABS: ANION GAP 13; CALCIUM 8.1 mg/dL (8.5-10.1); CARBON DIOXIDE 23 mEq/L (21-32); CHLORIDE 107 mEq/L (98-107); INDEX HEMOLYSI 2 (1-3); INDEX ICTERIC 1 (1-4); INDEX LIPEMIC 1 (1-3); UREA NITROGEN BLOOD 21 mg/dL (7-21); eGFR > 60 mL/min (>60)
[2016-06-13 08:00] VITALS: BP 140/83
[2016-06-13] MEDS: BISACODYL 10MG SUPP PR SCH (08:10)
[2016-06-13] MEDS: LEVETIRACETAM 500MG TABLET PO SCH ×2 (08:23→21:10)
[2016-06-13] MEDS: ASPIRIN 81MG TABLET PO SCH (08:24)
[2016-06-13] MEDS: DOCUSATE SODIUM 100MG CAPSULE PO SCH ×2 (08:24→16:41)
[2016-06-13] MEDS: AMLODIPINE 5MG TABLET PO SCH (08:24)
[2016-06-13] MEDS: GABAPENTIN 300MG CAPSULE PO SCH ×2 (08:24→16:41)
[2016-06-13] MEDS: COLCHICINE 0.6MG TABLET PO SCH (08:25)
[2016-06-13] MEDS: LOSARTAN POTASSIUM 100 MG TABLET PO SCH (08:25)
[2016-06-13] MEDS: FOLIC ACID 1MG TABLET PO SCH (08:25)
[2016-06-13] MEDS: ISOSORBIDE MONONITRATE 30MG TABLET SR 24HR PO SCH (08:25)
[2016-06-13] MEDS: DEXAMETHASONE 4MG/ML 1ML VIAL IV SCH ×2 (08:26→20:52)
[2016-06-13] MEDS: NEXIUM 40MG CAPSULE PO SCH ×2 (08:26→16:42)
[2016-06-13] MEDS ORDERED: [UNRECOGNIZED DRUG - OTHER] PR PRN (09:00)
[2016-06-13] MEDS ORDERED: NA PHOS M B PR PRN (09:00)
[2016-06-13] MEDS: FERROUS SULFATE 325MG TABLET PO SCH ×3 (10:21→16:41)
[2016-06-13] MEDS: HYDROCODONE/ACETAMINOPHEN 5/325MG TABLET PO PRN (10:23)
[2016-06-13 12:00] VITALS: BP 136/81
[2016-06-13] MEDS: LACTULOSE 20G/30ML UDC PO SCH ×3 (12:11→21:10)
[2016-06-13 16:00] VITALS: BP 124/73
[2016-06-13 20:00] VITALS: BP 105/67
[2016-06-13] MEDS: POLYETHYLENE GLYCOL 3350 (17GM) 1 DOSE PACK PO SCH (21:10)
[2016-06-13] MEDS: SENNOSIDES/DOCUSATE SOD 8.6/50MG TABLET PO PRN (21:10)
[2016-06-14] VITALS: BP 125/70
[2016-06-14] MEDS: HYDROCODONE/ACETAMINOPHEN 5/325MG TABLET PO PRN ×2 (01:51→18:50)
[2016-06-14 04:00] VITALS: BP 125/63
[2016-06-14] MEDS: GEMFIBROZIL 600 MG TAB PO SCH ×2 (06:05→17:21)
[2016-06-14] MEDS: NEXIUM 40MG CAPSULE PO SCH ×2 (06:07→17:22)
[2016-06-14 08:00] VITALS: BP 136/72
[2016-06-14] MEDS: LEVETIRACETAM 500MG TABLET PO SCH ×2 (08:23→20:49)
[2016-06-14] MEDS: LOSARTAN POTASSIUM 100 MG TABLET PO SCH (08:23)
[2016-06-14] MEDS: GABAPENTIN 300MG CAPSULE PO SCH ×2 (08:24→17:21)
[2016-06-14] MEDS: ISOSORBIDE MONONITRATE 30MG TABLET SR 24HR PO SCH (08:24)
[2016-06-14] MEDS: COLCHICINE 0.6MG TABLET PO SCH (08:24)
[2016-06-14] MEDS: DOCUSATE SODIUM 100MG CAPSULE PO SCH ×2 (08:24→17:21)
[2016-06-14] MEDS: ASPIRIN 81MG TABLET PO SCH (08:24)
[2016-06-14] MEDS: FOLIC ACID 1MG TABLET PO SCH (08:24)
[2016-06-14] MEDS: FERROUS SULFATE 325MG TABLET PO SCH ×3 (08:24→17:21)
[2016-06-14] MEDS: AMLODIPINE 5MG TABLET PO SCH (08:24)
[2016-06-14] MEDS: BISACODYL 10MG SUPP PR SCH (08:25)
[2016-06-14] MEDS: DEXAMETHASONE 4MG/ML 1ML VIAL IV SCH ×2 (08:26→20:49)
[2016-06-14 12:04] VITALS: BP 127/79
[2016-06-14 16:05] VITALS: BP 116/64
[2016-06-14 20:00] VITALS: BP 133/74
[2016-06-14] MEDS: POLYETHYLENE GLYCOL 3350 (17GM) 1 DOSE PACK PO SCH (20:49)
[2016-06-15] VITALS: BP 105/59
[2016-06-15 04:00] VITALS: BP 146/88
[2016-06-15 05:34] LABS: BASOPHILS % 0.2 % (0.0-2.0); DIFFERENTIAL COMMENT 0; EOSINOPHILS % 0.3 % (0.0-5.0); HEMATOCRIT. 32.5 % (36.0-48.0); HEMOGLOBIN. 10.5 g/dL (12.0-16.0); LYMPHOCYTES % 15.5 % (20.0-50.0); MEAN CORPUSCULAR HGB CONC 32.2 g/dL (31.0-37.0); MEAN CORPUSCULAR VOLUME 74.4 fL (81.0-99.0); MEAN PLATELET VOLUME 8.1 fl (7.4-10.4); MONOCYTES % 5.1 % (2.0-8.0); NEUTROPHILS % 78.9 % (40.0-76.0); PLATELET 213 x1000/uL (130-400); RED BLOOD CELL COUNT 4.37 mill/uL (4.2-5.4); RED CELL DISTRIBUTION WIDTH 18.6 % (11.6-14.6); WHITE BLOOD COUNT 9.6 x1000/uL (4.5-11.0)
[2016-06-15] MEDS: GEMFIBROZIL 600 MG TAB PO SCH ×2 (06:04→18:07)
[2016-06-15] MEDS: NEXIUM 40MG CAPSULE PO SCH ×2 (06:05→17:00)
[2016-06-15 07:42] VITALS: BP 125/83
[2016-06-15] MEDS ORDERED: NA PHOS,M-B/NA PHOS,DI-BA ENEMA 118ML PR NR (07:45)
[2016-06-15] MEDS ORDERED: NA PHOS,M-B/NA PHOS,DI-BA ENEMA 118ML PR PRN (08:00)
[2016-06-15] MEDS: BISACODYL 10MG SUPP PR SCH ×2 (08:10→08:34)
[2016-06-15] MEDS: DEXAMETHASONE 4MG/ML 1ML VIAL IV SCH ×2 (08:31→21:43)
[2016-06-15] MEDS: GABAPENTIN 300MG CAPSULE PO SCH ×2 (08:31→17:00)
[2016-06-15] MEDS: LEVETIRACETAM 500MG TABLET PO SCH ×2 (08:32→21:13)
[2016-06-15] MEDS: LOSARTAN POTASSIUM 100 MG TABLET PO SCH (08:32)
[2016-06-15] MEDS: DOCUSATE SODIUM 100MG CAPSULE PO SCH ×2 (08:32→17:00)
[2016-06-15] MEDS: FERROUS SULFATE 325MG TABLET PO SCH ×3 (08:32→18:07)
[2016-06-15] MEDS: AMLODIPINE 5MG TABLET PO SCH (08:33)
[2016-06-15] MEDS: COLCHICINE 0.6MG TABLET PO SCH (08:33)
[2016-06-15] MEDS: ASPIRIN 81MG TABLET PO SCH (08:34)
[2016-06-15] MEDS: FOLIC ACID 1MG TABLET PO SCH (08:34)
[2016-06-15] MEDS: ISOSORBIDE MONONITRATE 30MG TABLET SR 24HR PO SCH (08:35)
[2016-06-15 12:13] VITALS: BP 116/66
[2016-06-15 16:15] VITALS: BP_SYST 101; BP_SYST 117; BP_DIAS 62; BP_DIAS 77
[2016-06-15 20:00] VITALS: BP 127/79
[2016-06-15] MEDS: POLYETHYLENE GLYCOL 3350 (17GM) 1 DOSE PACK PO SCH (21:13)
[2016-06-16] VITALS: BP 115/60
[2016-06-16 04:00] VITALS: BP 110/77
[2016-06-16] MEDS: GEMFIBROZIL 600 MG TAB PO SCH ×2 (06:03→18:05)
[2016-06-16] MEDS: NEXIUM 40MG CAPSULE PO SCH ×2 (06:04→18:04)
[2016-06-16 08:00] VITALS: BP 143/74
[2016-06-16] MEDS: BISACODYL 10MG SUPP PR SCH (08:10)
[2016-06-16] MEDS: ISOSORBIDE MONONITRATE 30MG TABLET SR 24HR PO SCH (09:27)
[2016-06-16] MEDS: FOLIC ACID 1MG TABLET PO SCH (09:28)
[2016-06-16] MEDS: LOSARTAN POTASSIUM 100 MG TABLET PO SCH (09:28)
[2016-06-16] MEDS: FERROUS SULFATE 325MG TABLET PO SCH ×2 (09:28→12:38)
[2016-06-16] MEDS: AMLODIPINE 5MG TABLET PO SCH (09:28)
[2016-06-16] MEDS: COLCHICINE 0.6MG TABLET PO SCH (09:28)
[2016-06-16] MEDS: DOCUSATE SODIUM 100MG CAPSULE PO SCH ×2 (09:29→18:05)
[2016-06-16] MEDS: LEVETIRACETAM 500MG TABLET PO SCH ×2 (09:29→21:23)
[2016-06-16] MEDS: DEXAMETHASONE 4MG/ML 1ML VIAL IV SCH ×2 (09:29→21:58)
[2016-06-16] MEDS: ASPIRIN 81MG TABLET PO SCH (09:29)
[2016-06-16] MEDS: GABAPENTIN 300MG CAPSULE PO SCH ×2 (09:29→18:05)
[2016-06-16 12:00] VITALS: BP 108/72
[2016-06-16] MEDS: HYDROCODONE/ACETAMINOPHEN 5/325MG TABLET PO PRN (12:39)
[2016-06-16 16:00] VITALS: BP 93/55
[2016-06-16] MEDS: IRON SUCROSE COMPLEX 100 MG/5 ML ML IV SCH (18:06)
[2016-06-16 20:00] VITALS: BP 121/79
[2016-06-16] MEDS: POLYETHYLENE GLYCOL 3350 (17GM) 1 DOSE PACK PO SCH (21:23)
[2016-06-17] VITALS (7 sets, daily range): BP systolic 103–138; BP diastolic 57–91
[2016-06-17] MEDS: NEXIUM 40MG CAPSULE PO SCH ×2 (06:09→17:11)
[2016-06-17] MEDS: GEMFIBROZIL 600 MG TAB PO SCH ×2 (06:10→17:11)
[2016-06-17] MEDS: DEXAMETHASONE 4MG/ML 1ML VIAL IV SCH ×2 (08:59→20:32)
[2016-06-17] MEDS: FOLIC ACID 1MG TABLET PO SCH (09:00)
[2016-06-17] MEDS: BISACODYL 10MG SUPP PR SCH (09:00)
[2016-06-17] MEDS: COLCHICINE 0.6MG TABLET PO SCH (09:00)
[2016-06-17] MEDS: LOSARTAN POTASSIUM 100 MG TABLET PO SCH (09:00)
[2016-06-17] MEDS: GABAPENTIN 300MG CAPSULE PO SCH ×2 (09:00→17:11)
[2016-06-17] MEDS: LEVETIRACETAM 500MG TABLET PO SCH ×2 (09:00→20:32)
[2016-06-17] MEDS: DOCUSATE SODIUM 100MG CAPSULE PO SCH ×2 (09:00→17:11)
[2016-06-17] MEDS: ASPIRIN 81MG TABLET PO SCH (09:00)
[2016-06-17] MEDS: ISOSORBIDE MONONITRATE 30MG TABLET SR 24HR PO SCH (09:01)
[2016-06-17] MEDS: AMLODIPINE 5MG TABLET PO SCH (09:01)
[2016-06-17 12:36] LABS: BASOPHILS % 0.2 % (0.0-2.0); DIFFERENTIAL COMMENT 0; EOSINOPHILS % 0.3 % (0.0-5.0); HEMATOCRIT. 33.2 % (36.0-48.0); HEMOGLOBIN. 10.8 g/dL (12.0-16.0); LYMPHOCYTES % 14.9 % (20.0-50.0); MEAN CORPUSCULAR HEMOGLOBIN 24.4 pg (28.0-32.0); MEAN CORPUSCULAR HGB CONC 32.5 g/dL (31.0-37.0); MEAN CORPUSCULAR VOLUME 75.1 fL (81.0-99.0); MEAN PLATELET VOLUME 7.7 fl (7.4-10.4); MONOCYTES % 5.2 % (2.0-8.0); NEUTROPHILS % 79.4 % (40.0-76.0); PLATELET 192 x1000/uL (130-400); RED BLOOD CELL COUNT 4.42 mill/uL (4.2-5.4); RED CELL DISTRIBUTION WIDTH 18.9 % (11.6-14.6); WHITE BLOOD COUNT 8.3 x1000/uL (4.5-11.0)
[2016-06-17 13:09] LABS: ANION GAP 13; CALCIUM 8.3 mg/dL (8.5-10.1); CARBON DIOXIDE 23 mEq/L (21-32); CHLORIDE 106 mEq/L (98-107); INDEX HEMOLYSI 1 (1-3); INDEX ICTERIC 1 (1-4); INDEX LIPEMIC 1 (1-3); MAGNESIUM 2.6 mg/dL (1.8-2.4); PHOSPHORUS 3.2 mg/dL (2.5-4.9); UREA NITROGEN BLOOD 24 mg/dL (7-21); eGFR > 60 mL/min (>60)
[2016-06-17] MEDS: IRON SUCROSE COMPLEX 100 MG/5 ML ML IV SCH (17:11)
[2016-06-17] MEDS: HYDROCODONE/ACETAMINOPHEN 5/325MG TABLET PO PRN (18:22)
[2016-06-17] MEDS: POLYETHYLENE GLYCOL 3350 (17GM) 1 DOSE PACK PO SCH (20:27)
[2016-06-18 04:00] VITALS: BP 110/80
[2016-06-18] MEDS: GEMFIBROZIL 600 MG TAB PO SCH ×2 (06:17→17:40)
[2016-06-18 07:04] VITALS: BP 128/79
[2016-06-18] MEDS: HYDROCODONE/ACETAMINOPHEN 5/325MG TABLET PO PRN (07:07)
[2016-06-18 08:00] VITALS: BP 124/65
[2016-06-18] MEDS: BISACODYL 10MG SUPP PR SCH (08:10)
[2016-06-18] MEDS: DOCUSATE SODIUM 100MG CAPSULE PO SCH ×2 (09:00→17:00)
[2016-06-18] MEDS: LOSARTAN POTASSIUM 100 MG TABLET PO SCH (09:56)
[2016-06-18] MEDS: ASPIRIN 81MG TABLET PO SCH (09:59)
[2016-06-18] MEDS: FOLIC ACID 1MG TABLET PO SCH (09:59)
[2016-06-18] MEDS: GABAPENTIN 300MG CAPSULE PO SCH ×2 (09:59→17:40)
[2016-06-18] MEDS: LEVETIRACETAM 500MG TABLET PO SCH ×2 (09:59→20:30)
[2016-06-18] MEDS: AMLODIPINE 5MG TABLET PO SCH (09:59)
[2016-06-18] MEDS: DEXAMETHASONE 4MG/ML 1ML VIAL IV SCH ×2 (10:00→20:30)
[2016-06-18] MEDS: CYANOCOBALAMIN 1000MCG/ML VIAL IM SCH (10:00)
[2016-06-18] MEDS: ISOSORBIDE MONONITRATE 30MG TABLET SR 24HR PO SCH (10:00)
[2016-06-18] MEDS: COLCHICINE 0.6MG TABLET PO SCH (10:03)
[2016-06-18] MEDS: NEXIUM 40MG CAPSULE PO SCH ×2 (10:03→17:41)
[2016-06-18 12:00] VITALS: BP 101/60
[2016-06-18 16:00] VITALS: BP 106/67
[2016-06-18] MEDS: IRON SUCROSE COMPLEX 100 MG/5 ML ML IV SCH (17:40)
[2016-06-19] VITALS: BP 106/65
[2016-06-19 04:00] VITALS: BP 113/67
[2016-06-19] MEDS: GEMFIBROZIL 600 MG TAB PO SCH ×2 (06:28→17:03)
[2016-06-19 08:00] VITALS: BP 108/71
[2016-06-19] MEDS: FOLIC ACID 1MG TABLET PO SCH ×2 (08:52→09:00)
[2016-06-19] MEDS: ASPIRIN 81MG TABLET PO SCH ×2 (08:52→09:00)
[2016-06-19] MEDS: COLCHICINE 0.6MG TABLET PO SCH ×2 (08:54→09:00)
[2016-06-19] MEDS: GABAPENTIN 300MG CAPSULE PO SCH ×3 (08:54→17:04)
[2016-06-19] MEDS: LOSARTAN POTASSIUM 100 MG TABLET PO SCH ×2 (08:54→09:00)
[2016-06-19] MEDS: AMLODIPINE 5MG TABLET PO SCH ×2 (08:54→09:00)
[2016-06-19] MEDS: DEXAMETHASONE 4MG/ML 1ML VIAL IV SCH ×2 (08:54→22:16)
[2016-06-19] MEDS: LEVETIRACETAM 500MG TABLET PO SCH ×3 (08:54→22:16)
[2016-06-19] MEDS: DOCUSATE SODIUM 100MG CAPSULE PO SCH ×3 (08:54→17:00)
[2016-06-19] MEDS: CYANOCOBALAMIN 1000MCG/ML VIAL IM SCH (08:55)
[2016-06-19] MEDS: ISOSORBIDE MONONITRATE 30MG TABLET SR 24HR PO SCH (08:55)
[2016-06-19] MEDS: NEXIUM 40MG CAPSULE PO SCH ×2 (08:55→18:31)
[2016-06-19 12:00] VITALS: BP 143/67
[2016-06-19 16:00] VITALS: BP 129/75
[2016-06-19] MEDS: IRON SUCROSE COMPLEX 100 MG/5 ML ML IV SCH (17:03)
[2016-06-19 20:00] VITALS: BP 132/70
[2016-06-20] VITALS: BP 126/85
[2016-06-20 04:00] VITALS: BP 148/73
[2016-06-20] MEDS: NEXIUM 40MG CAPSULE PO SCH ×2 (06:21→17:13)
[2016-06-20] MEDS: GEMFIBROZIL 600 MG TAB PO SCH ×2 (06:21→17:14)
[2016-06-20 08:00] VITALS: BP 139/74
[2016-06-20] MEDS: DOCUSATE SODIUM 100MG CAPSULE PO SCH (09:00)
[2016-06-20] MEDS: ISOSORBIDE MONONITRATE 30MG TABLET SR 24HR PO SCH (09:00)
[2016-06-20] MEDS: AMLODIPINE 5MG TABLET PO SCH (09:47)
[2016-06-20] MEDS: LOSARTAN POTASSIUM 100 MG TABLET PO SCH (09:47)
[2016-06-20] MEDS: COLCHICINE 0.6MG TABLET PO SCH (09:47)
[2016-06-20] MEDS: GABAPENTIN 300MG CAPSULE PO SCH ×2 (09:48→17:12)
[2016-06-20] MEDS: DEXAMETHASONE 4MG/ML 1ML VIAL IV SCH ×2 (09:48→20:09)
[2016-06-20] MEDS: ASPIRIN 81MG TABLET PO SCH (09:48)
[2016-06-20] MEDS: CYANOCOBALAMIN 1000MCG/ML VIAL IM SCH (09:48)
[2016-06-20] MEDS: LEVETIRACETAM 500MG TABLET PO SCH ×2 (09:48→20:09)
[2016-06-20] MEDS: FOLIC ACID 1MG TABLET PO SCH (09:48)
[2016-06-20] MEDS: HYDROMORPHONE HCL/PF 2MG/ML CPJ IV PRN (11:13)
[2016-06-20 12:00] VITALS: BP 127/84
[2016-06-20] MEDS ORDERED: DIAZEPAM 5 MG TABLET PO PRN (14:00)
[2016-06-20 16:00] VITALS: BP 115/65
[2016-06-20] MEDS: IRON SUCROSE COMPLEX 100 MG/5 ML ML IV SCH (17:12)
[2016-06-20 20:00] VITALS: BP 114/65
[2016-06-21] VITALS: BP 114/58
[2016-06-21] MEDS: HYDROMORPHONE HCL/PF 2MG/ML CPJ IV PRN ×2 (00:33→17:12)
[2016-06-21 04:00] VITALS: BP 127/70
[2016-06-21] MEDS: NEXIUM 40MG CAPSULE PO SCH ×2 (05:53→17:13)
[2016-06-21] MEDS: GEMFIBROZIL 600 MG TAB PO SCH ×2 (06:00→17:11)
[2016-06-21 08:00] VITALS: BP 116/66
[2016-06-21] MEDS: COLCHICINE 0.6MG TABLET PO SCH (08:56)
[2016-06-21] MEDS: DEXAMETHASONE 4MG/ML 1ML VIAL IV SCH (08:56)
[2016-06-21] MEDS: GABAPENTIN 300MG CAPSULE PO SCH ×2 (08:56→17:11)
[2016-06-21] MEDS: LEVETIRACETAM 500MG TABLET PO SCH ×2 (08:56→20:41)
[2016-06-21] MEDS: CYANOCOBALAMIN 1000MCG/ML VIAL IM SCH (08:56)
[2016-06-21] MEDS: LOSARTAN POTASSIUM 100 MG TABLET PO SCH (08:56)
[2016-06-21] MEDS: ISOSORBIDE MONONITRATE 30MG TABLET SR 24HR PO SCH (08:57)
[2016-06-21] MEDS: AMLODIPINE 5MG TABLET PO SCH (08:57)
[2016-06-21] MEDS: ASPIRIN 81MG TABLET PO SCH (08:57)
[2016-06-21] MEDS: FOLIC ACID 1MG TABLET PO SCH (08:58)
[2016-06-21 12:16] VITALS: BP 109/63
[2016-06-21 15:57] VITALS: BP 102/61
[2016-06-21 20:00] VITALS: BP 108/62
[2016-06-22] VITALS: BP 98/51
[2016-06-22 04:00] VITALS: BP 98/57
[2016-06-22] MEDS: NEXIUM 40MG CAPSULE PO SCH (05:50)
[2016-06-22] MEDS: HYDROMORPHONE HCL/PF 2MG/ML CPJ IV PRN (06:03)
[2016-06-22] MEDS: GEMFIBROZIL 600 MG TAB PO SCH (06:39)
[2016-06-22 08:00] VITALS: BP 109/62
[2016-06-22] MEDS ORDERED: BISACODYL 10MG SUPP PR SCH (08:10)
[2016-06-22] MEDS: GABAPENTIN 300MG CAPSULE PO SCH (08:39)
[2016-06-22] MEDS: FOLIC ACID 1MG TABLET PO SCH (08:39)
[2016-06-22] MEDS: LEVETIRACETAM 500MG TABLET PO SCH (08:39)
[2016-06-22] MEDS: ASPIRIN 81MG TABLET PO SCH (08:39)
[2016-06-22] MEDS: COLCHICINE 0.6MG TABLET PO SCH (08:42)
[2016-06-22] MEDS: LOSARTAN POTASSIUM 100 MG TABLET PO SCH (08:54)
[2016-06-22] MEDS: ISOSORBIDE MONONITRATE 30MG TABLET SR 24HR PO SCH (08:54)
[2016-06-22] MEDS: AMLODIPINE 5MG TABLET PO SCH (08:55)
[2016-06-22] MEDS ORDERED: DEXAMETHASONE 4MG TABLET PO SCH (09:00)
[2016-06-22 12:00] VITALS: BP_SYST 105; BP_SYST 109; BP_DIAS 63
[2016-06-22 14:26] VITALS: BP 109/63
[2016-06-22] MEDS ORDERED: POLYETHYLENE GLYCOL 3350 (17GM) 1 DOSE PACK PO SCH (21:00)
[2016-06-22] MEDS ORDERED: LACTULOSE 20G/30ML UDC PO SCH (21:00)
== END 2016-06-22 16:50 | DRG 21 ==
LOC: ER 15:47 → 7WST 18:40 → MICUSO 06-03 09:22 → 6EST 06-06 22:30 → 8WST 06-08 09:30
PROVIDERS: ADMIT Internal Medicine; ATTEND Internal Medicine
PROC: 00U207Z Supplement Dura Mater with Autologous Tissue Substitute, Open Approach (ICD-10-PCS; 2016-06-03)
PROC: 00B00ZX Excision of Brain, Open Approach, Diagnostic (ICD-10-PCS; principal; 2016-06-03 07:30)
DX: D32.0 Benign neoplasm of cerebral meninges (principal); G82.50 Quadriplegia, unspecified; G93.6 Cerebral edema; G93.40 Encephalopathy, unspecified; K92.2 Gastrointestinal hemorrhage, unspecified; E44.1 Mild protein-calorie malnutrition; J44.9 Chronic obstructive pulmonary disease, unspecified; D63.1 Anemia in chronic kidney disease; I12.9 Hypertensive chronic kidney disease with stage 1 through stage 4 chronic kidney disease, or unspecified chronic kidney disease; E78.5 Hyperlipidemia, unspecified; E78.00 Pure hypercholesterolemia, unspecified; J45.909 Unspecified asthma, uncomplicated; R71.8 Other abnormality of red blood cells; R47.1 Dysarthria and anarthria; N18.9 Chronic kidney disease, unspecified; D50.9 Iron deficiency anemia, unspecified; H54.41 Blindness, right eye, normal vision left eye; R00.1 Bradycardia, unspecified; I25.10 Atherosclerotic heart disease of native coronary artery without angina pectoris; I48.0 Paroxysmal atrial fibrillation; K21.9 Gastro-esophageal reflux disease without esophagitis; S06.9X0A Unspecified intracranial injury without loss of consciousness, initial encounter; R60.9 Edema, unspecified; R26.2 Difficulty in walking, not elsewhere classified; Z86.011 Personal history of benign neoplasm of the brain; Z86.718 Personal history of other venous thrombosis and embolism; Z86.73 Personal history of transient ischemic attack (TIA), and cerebral infarction without residual deficits; Z87.891 Personal history of nicotine dependence; Z98.84 Bariatric surgery status; Z88.1 Allergy status to other antibiotic agents; Z88.8 Allergy status to other drugs, medicaments and biological substances; Z98.890 Other specified postprocedural states; Z68.41 Body mass index [BMI] 40.0-44.9, adult
CPT/HCPCS: 36415; 70450; 70544; 70553; 74000; 80048; 80053; 80061; 80162; 80305; 81003; 82607; 82728; 82746; 82962; 83036; 83540; 83550; 83735; 84100; 84439; 84443; 84481; 84484; 85025; 85027; 86140; 87493; 88300; 88307; 92523; 92610; 93005; 93306; 93880; 93970; 95829; 95925; 96361; 96374; 96375; 96376; 97110; 97112; 97116; 97162; 97163; 97164; 97166; 97168; 97530; 99285; A4216; A6261; A9577; C1713; C1751; C1893; G0482; J0171; J0690; J1100; J1165; J1170; J1200; J1953; J2250; J2270; J2405; J2704; J2710; J2765; J3010; J3420; J3490; J7030; J7040; J7050; J7060; J7121; J8540

== ENCOUNTER → 2016-08-04 | Outpatient (CLI) | payer MEDICARE, MEDICAID ==
[~2016-08-04] MED LIST changes: +GEMF600T3 PO; +GUAI10SY2 PO; -GUAI10SY3 PO; +TAPE75TA2 PO
== END | disposition home or self-care (01) ==
LOC: CT 10:34
DX: G31.9 Degenerative disease of nervous system, unspecified (principal); R90.82 White matter disease, unspecified
CPT/HCPCS: 70450

== ENCOUNTER → 2016-08-24 | Outpatient (CLI) | payer MEDICARE, MEDICAID ==
[~2016-08-24] MED LIST changes: +GADOBENATE DIMEGLUMINE 529 MG/ML 10ML IV ONE
== END | disposition home or self-care (01) ==
LOC: MRI 10:20
DX: C71.9 Malignant neoplasm of brain, unspecified (principal); J11.1 Influenza due to unidentified influenza virus with other respiratory manifestations; K30 Functional dyspepsia; G31.9 Degenerative disease of nervous system, unspecified; R90.82 White matter disease, unspecified
CPT/HCPCS: 70553; A9577

== ENCOUNTER 2016-09-30 10:42 | Emergency (ER) | payer MEDICARE, MEDICAID ==
[~2016-09-30] VITALS: Ht 165.1 cm; Wt 118.0 kg
[~2016-09-30 10:42] MED LIST changes: +ASPI-1236 PO; -ASPI-292 PO; -GADOBENATE DIMEGLUMINE 529 MG/ML 10ML IV ONE; -LOSA100T11 PO; +LOSA100T3 PO
[2016-09-30 13:00] VITALS: BP 151/75
== END 2016-09-30 13:31 | disposition home or self-care (01) ==
LOC: ER 11:10
DX: R06.00 Dyspnea, unspecified (principal); K21.9 Gastro-esophageal reflux disease without esophagitis; E78.00 Pure hypercholesterolemia, unspecified; I10 Essential (primary) hypertension; D49.6 Neoplasm of unspecified behavior of brain; Z88.1 Allergy status to other antibiotic agents; Z88.8 Allergy status to other drugs, medicaments and biological substances
CPT/HCPCS: 71010; 99283; 99285